=== PATIENT | female | born 1960 | race Caucasian/White ===

== ENCOUNTER 2017-01-24 23:28 | Emergency (ER) | payer OTHER, MEDICAID ==
[~2017-01-24] VITALS: Ht 162.6 cm; Wt 54.4 kg
[~2017-01-24 23:28] MED LIST: CLON05T PO; FOLI1TAB51 PO; LEVO50TA7 PO; NAPR-223 PO; OXY10CRT PO; PREG75CA PO; SIMV-13 PO; TRAZ150T79 PO; ZOLP5TAB5 PO
[2017-01-25] MEDS ORDERED: SODIUM CHLORIDE 0.9% 1,000 ML IV ONE ×2 (01:07)
[2017-01-25 02:03] LABS: Albumin 2.7 g/dL (3.4-5.0); Calcium 8.4 mg/dL (8.5-10.1); Potassium 4.2 mmol/L (3.5-5.1)
[2017-01-25 02:05] LABS: Bilirubin, Total 0.5 mg/dL (0.2-1.0); Total Protein 6.2 g/dL (6.4-8.2)
[2017-01-25 02:06] LABS: Basophils # (auto) 0.1 uL; Basophils % (auto) 0.5 % (0.0-2.0); Eosinophils # (auto) 0.2 uL; Eosinophils % (auto) 1.6 % (0.0-7.0); Hematocrit 34.8 % (36.0-46.0); Hemoglobin 11.7 g/dL (12.2-16.2); Lymphocytes # (auto) 1.5 uL; Lymphocytes % (auto) 13.1 % (10.0-50.0); Mean Corpuscular Hemoglobin 33.3 pg (28.0-32.0); Mean Corpuscular Hgb Conc. 33.6 g/dL (32.0-36.0); Mean Corpuscular Volume 99.1 fL (80.0-100.0); Mean Platelet Volume 8.6 fL (7.4-10.4); Monocytes # (auto) 0.8 uL; Monocytes % (auto) 6.7 % (0.0-12.0); Neutrophils # (auto) 9.1 uL; Neutrophils % (auto) 78.1 % (37.0-80.0); Platelet Count (auto) 223 10^3/uL (140-450); Red Cell Distribution Width 17.4 % (11.6-16.0); White Blood Cell 11.6 10^3/uL (4.4-10.8)
[2017-01-25 03:10] LABS: Urine RBC None Seen /hpf (0 - 4)
[2017-01-25 03:45] VITALS: BP 145/83
[2017-01-25 04:20] LABS: Urine Bilirubin Negative (Negative); Urine Blood Negative /uL (Negative); Urine Color Yellow (Yellow); Urine Glucose Normal (Normal); Urine Ketone Negative (Negative); Urine Nitrite Negative (Negative); Urine Squamous Epithelial Cell FEW /hpf (<5); Urine Urobilinogen Normal (Negative); Urine pH 5.5 (5.0-8.0)
== END 2017-01-25 05:28 | disposition home or self-care (01) ==
LOC: ER 23:28 → EDBD 23:28 → ER 01-25 05:28
DX: M06.9 Rheumatoid arthritis, unspecified (principal); D72.829 Elevated white blood cell count, unspecified; F41.9 Anxiety disorder, unspecified; E78.5 Hyperlipidemia, unspecified; F17.210 Nicotine dependence, cigarettes, uncomplicated; E43 Unspecified severe protein-calorie malnutrition
CPT/HCPCS: 36415; 80053; 81001; 85025; 96360; 96361; 99285; J7030; 93005